=== PATIENT | male | born 1995 | race Two or more races ===

== ENCOUNTER 2020-09-15 10:04 | Outpatient (CLI) | payer OTHER | END 2020-09-15 10:27 | disposition home or self-care (01) | LOC: RAD 10:04 | PROVIDERS: ATTEND General Practice | DX: R05 Cough (principal) ==

== ENCOUNTER 2025-09-15 08:18 | Outpatient (CLI) | payer OTHER ==
[~2025-09-15 08:18] MED LIST: CONCERTA54 MG; KETO10TA2 PO
== END 2025-09-15 08:28 | disposition home or self-care (01) ==
LOC: RAD 08:18
PROVIDERS: ATTEND General Practice
DX: S59.901A Unspecified injury of right elbow, initial encounter (principal); M99.9 Biomechanical lesion, unspecified